=== PATIENT | female | born 1990 | race Two or more races ===

== ENCOUNTER 2019-01-08 09:09 | Emergency (ER) | payer OTHER ==
[2019-01-08 09:23] VITALS: BP 127/83
[2019-01-08] MEDS ORDERED: BUFFERED LIDOCAINE 10 ML SYRINGE SUBQ STA (10:18)
--- NOTE | 2019-01-08 10:19 | ED Physician Documentation ---
History of Present Illness - Stated complaint Stated Complaint: FEMALE / INFLAMED LUMP - Chief complaint Chief Complaint: Wound - Additonal information Additional information: This is a 28-year-old female who is currently ~39 weeks who presents with an inflamed lump near her buttocks. Patient states this began several days ago, she has applied some mupirocin cream as well as some warm compresses but she has not noticed any drainage and it is becoming increasingly pain full to sit on. She has had a similar problem in the past and it drained spontaneously with heat. She denies any fever or chills. Review of Systems Constitutional: denies: Fever Skin: reports: Lesions Musculoskeletal: denies: Back pain Immunocompromised: denies: Immunocompromised PD PAST MEDICAL HISTORY - Past Medical History Derm: Other (Past abscess in gluteal region) - Present Medications Home Medications: Ambulatory Orders Medication Instructions Recorded Confirmed Clindamycin HCl [Clindamycin 300MG 300 mg PO Q6H #28 capsule 01/08/19 CAP] - Allergies Allergies/Adverse Reactions: Allergies Allergy/AdvReac Type Severity Reaction Status Date / Time No Known Drug Allergies Allergy Verified 01/08/19 09:22 - Living Situation Living Situation: reports: With family Living Arrangement: reports: At home - Social History Does the pt smoke?: No Does the pt have substance abuse?: No - Family History Family history: reports: Non contributory PD ED PE NORMAL - Vitals Vital signs reviewed: Yes - General General: Alert and oriented X 3, No acute distress - HEENT HEENT: PERRL - Neck Neck: Supple, no meningeal sign - Cardiac Cardiac: RRR - Respiratory Respiratory: Clear bilaterally - Abdomen Abdomen: Soft, Other (Gravid, non-tender) - Female Female : Marketing Project Coordinator present (JENNY Gregorio present. There is a fluctuant and tender 4cm diameter mass inferior to the vulva and on the right gluteus. No tracking to the rectum. This is seperate from the vulva and not in the location of a bartholin's cyst) - Derm Derm: Warm and dry - Extremities Extremities: No deformity - Neuro Neuro: Alert and oriented X 3 - Psych Psych: Normal mood, Normal affect Results - Vitals Vitals: Vital Signs - 24 hr 01/08/19 09:21 Temperature 36.8 C Heart Rate 76 Respiratory 18 Rate Blood Pressure 127/83 H O2 Saturation 99 Oxygen O2 Source Room air Procedures - Abscess I&D (location) Right gluteus Preparation: Confirmed with ultrasound, Lidocaine 1% Incision: Incised with scalpel, Purulent drainage, Loculations broken Other: Pt tolerated well, Dressing applied, Antibiotic prescribed PD MEDICAL DECISION MAKING - ED course Complexity details: considered differential (Abscess, cellulitis, infected cyst) ED course: Patient presents with a fluctuance mass on her right gluteus, with US there is a confirmed fluid collection. This appears to be a simple abscess and is not in the location for bartholin's gland abscess or sd-rectal fistula. After discussion of the risks and benefits and obtaining verbal consent this was drained as noted above with copious return of purulent fluid. Given the size of the abscess and the surrounding tissue inflammation, we started clindamycin with a discussion of it's apparent safety in I also discussed the risk of recurrence, wound care and the need for follow up. She has follow up with her OB within 4 days. With any fever, increasing pain, or other concerning symptoms she will return to the ED. Departure - Departure Disposition: Home, Self Care Clinical Impression: Abscess Condition: Good Instructions: ED Abscess IandD Follow-Up: Your,OB [Other] - Within 1 week (For recheck) Prescriptions: Clindamycin HCl [Clindamycin 300MG CAP] 300 mg PO Q6H #28 capsule Comments: You were seen today for an abscess/collection of pus which has been drained. Please take the antibiotic as prescribed and follow-up with your OB provider as scheduled next Friday. If you are developing increasing pain, redness, or fever, return to the emergency department. You may take sitz baths, and apply warm compresses to the area, it will likely continue to have some oozing of blood over the next 48 hours. Keep the area covered with clean bandage or pad. Discharge Date/Time: 01/08/19 11:21
[2019-01-08] MEDS ORDERED: CLINDAMYCIN 150 MG CAPSULE PO STA (11:06)
== END 2019-01-08 11:21 | disposition home or self-care (01) ==
LOC: ED 09:09
DX: O99.713 Diseases of the skin and subcutaneous tissue complicating pregnancy, third trimester (principal); L02.31 Cutaneous abscess of buttock; Z3A.39 39 weeks gestation of pregnancy
CPT/HCPCS: 10060; 99282; 99283; A9270

== ENCOUNTER 2020-03-13 19:18 | Emergency (ER) | payer OTHER ==
[2020-03-13] MEDS ORDERED: PENICILLIN VK 250 MG TABLET PO STA (20:35)
[2020-03-13] MEDS ORDERED: IBUPROFEN 800 MG TABLET PO STA (20:36)
--- NOTE | 2020-03-13 20:37 | ED Physician Documentation ---
PD HPI HEENT - Stated complaint Stated Complaint: LT SIDE FACE PX - Chief complaint Chief Complaint: Heent - History obtained from History obtained from: Patient - History of Present Illness Timing - onset: How many days ago (3) Timing - duration: Days (3) Timing - details: Gradual onset Pain level max: 7 Pain level now: 4 Location: Tooth (L upper) Improves: Nothing Worsens: Other (eating, drinking, palpation) - Additional information Additional information: Patient with left upper tooth pain for 3 days Review of Systems Constitutional: denies: Fever, Chills GI: denies: Vomiting : denies: Now EGA Skin: denies: Rash PD PAST MEDICAL HISTORY - Past Medical History Past Medical History: No Derm: Other (Past abscess in gluteal region) - Past Surgical History Past Surgical History: No - Present Medications Home Medications: Ambulatory Orders Medication Instructions Recorded Confirmed Ibuprofen [Motrin] 800 mg PO Q8H PRN #30 tablet 03/13/20 Norethindrone [Jencycla] 1 tab PO DAILY 03/13/20 03/13/20 Penicillin V Potassium 500 mg PO Q6HR #40 tablet 03/13/20 - Allergies Allergies/Adverse Reactions: Allergies Allergy/AdvReac Type Severity Reaction Status Date / Time No Known Drug Allergies Allergy Verified 03/13/20 19:25 - Social History Does the pt smoke?: No Smoking Status: Never smoker Does the pt drink ETOH?: No Does the pt have substance abuse?: No - Immunizations Immunizations are current?: Yes - POLST Patient has POLST: No PD ED PE NORMAL - Vitals Vital signs reviewed: Yes - General General: Alert and oriented X 3, No acute distress - HEENT HEENT: Moist mucous membranes - Neck Neck: Supple, no meningeal sign - Derm Derm: Warm and dry - Neuro Neuro: Alert and oriented X 3 - Psych Psych: Normal mood, Normal affect PD ED PE EXPANDED - HEENT HEENT Visual: 1 - tenderness (Tender to percussion. No swelling. No gingival abscess) Results - Vitals Vitals: Vital Signs - 24 hr 03/13/20 03/13/20 19:25 20:52 Temperature 36.5 C 36.4 C L Heart Rate 65 59 L Respiratory 16 17 Rate Blood Pressure 119/75 125/78 O2 Saturation 98 100 Oxygen O2 Source Room air PD MEDICAL DECISION MAKING - ED course Complexity details: considered differential, d/w patient ED course: Tenderness over tooth 10. We will place on antibiotics and pain medication. We will have her follow-up with her dentist tomorrow. No drainable abscess. Patient counseled regarding signs and symptoms for which I believe and urgent re-evaluation would be necessary. Patient with good understanding of and agreem ent to plan and is comfortable going home at this time This document was made in part using voice recognition software. While efforts are made to proofread this document, sound alike and grammatical errors may occur. Departure - Departure Disposition: 01 Home, Self Care Clinical Impression: Pain due to dental caries Condition: Good Instructions: ED Tooth Pain Follow-Up: your,dentist tomorrow [Other] Prescriptions: Penicillin V Potassium 500 mg PO Q6HR #40 tablet Ibuprofen [Motrin] 800 mg PO Q8H PRN #30 tablet PRN Reason: PAIN &/OR FEVER Comments: Take all antibiotics until gone. Follow-up with your dentist tomorrow. Return if you worsen. Discharge Date/Time: 03/13/20 20:52
[2020-03-13 20:53] VITALS: BP 125/78
== END 2020-03-13 20:52 | disposition home or self-care (01) ==
LOC: ED 19:18
DX: K02.9 Dental caries, unspecified (principal); K08.89 Other specified disorders of teeth and supporting structures
CPT/HCPCS: 99282; 99284; A9270

== ENCOUNTER 2021-04-15 13:09 | Emergency (ER) | payer OTHER ==
[2021-04-15 13:25] VITALS: BP 135/88
--- NOTE | 2021-04-15 14:28 | ED Physician Documentation ---
History of Present Illness - Stated complaint Stated Complaint: R SHOULDER PX - Chief complaint Chief Complaint: Wound - History obtained from History obtained from: Patient - History of Present Illness Pain level max: 4 Pain level now: 4 - Additonal information Additional information: 30-year-old female who presents to the emergency department complaining of swelling to the posterior right shoulder for the past few weeks, increased in size today, redness. Increased in pain. Has an appoint with her PCP on . Worse with palpation, nothing makes it better. Has not had similar symptoms previously. Is not , breast-feeding or trying to become . No allergies to medication. No fevers. No chills. Review of Systems Constitutional: denies: Fever, Chills GI: denies: Vomiting, Diarrhea Skin: denies: Rash Musculoskeletal: denies: Neck pain, Back pain Neurologic: denies: Headache PD PAST MEDICAL HISTORY - Past Medical History Derm: Other (Past abscess in gluteal region) - Past Surgical History Past Surgical History: No - Present Medications Home Medications: Ambulatory Orders Medication Instructions Recorded Confirmed Ibuprofen [Motrin] 800 mg PO Q8H PRN #30 tablet 03/13/20 Norethindrone [Jencycla] 1 tab PO DAILY 03/13/20 03/13/20 Penicillin V Potassium 500 mg PO Q6HR #40 tablet 03/13/20 HYDROcod/ACETAM 5/325 [[place] 5/325] 1 - 2 ea PO Q6H PRN #10 tablet 04/15/21 Sulfamethox/Trimeth 800/160 1 each PO BID #14 tablet 04/15/21 [Bactrim Ds 800/160] cephALEXin [Keflex] 500 mg PO Q6H #28 cap 04/15/21 - Allergies Allergies/Adverse Reactions: Allergies Allergy/AdvReac Type Severity Reaction Status Date / Time No Known Drug Allergies Allergy Verified 04/15/21 13:25 - Social History Does the pt smoke?: No Smoking Status: Never smoker Does the pt drink ETOH?: No Does the pt have substance abuse?: No - Immunizations Immunizations are current?: Yes - POLST Patient has POLST: No PD ED PE NORMAL - Vitals Vital signs reviewed: Yes - General General: Alert and oriented X 3, No acute distress - HEENT HEENT: Moist mucous membranes - Neck Neck: Supple, no meningeal sign - Cardiac Cardiac: RRR - Respiratory Respiratory: No respiratory distress, Clear bilaterally - Derm Derm: Warm and dry - Extremities Extremities: Other (1.5cm round indurated, fluctuant area to the posterior R shoulder. erythematous.) - Neuro Neuro: Alert and oriented X 3 Results - Vitals Vitals: Vital Signs - 24 hr 04/15/21 13:22 Temperature 36.3 C L Heart Rate 72 Respiratory 16 Rate Blood Pressure 135/88 H O2 Saturation 100 Oxygen O2 Source Room air Procedures - Abscess I&D (location) R shoulder Preparation: Confirmed with ultrasound, Lidocaine 2%, With epi Incision: Incised with scalpel, Purulent drainage, Packed, Culture obtained Other: Pt tolerated well, Dressing applied, Antibiotic prescribed PD MEDICAL DECISION MAKING - ED course Complexity details: considered differential, d/w patient ED course: 30-year-old female with what appears to be an infected sebaceous cyst. A large amount of thick material was removed from the cyst. There was also a small amount of pus. We will place on antibiotics and have her follow-up with her doctor. She will likely need further care with dermatology to remove the cyst. Patient counseled regarding signs and symptoms for which I believe and urgent re-evaluation would be necessary. Patient with good understanding of and ag reement to plan and is comfortable going home at this time This document was made in part using voice recognition software. While efforts are made to proofread this document, sound alike and grammatical errors may occur. Departure - Departure Disposition: 01 Home, Self Care Clinical Impression: Sebaceous cyst Condition: Good Instructions: ED Abscess IandD Follow-Up: Provider,Other [Primary Care Provider] - [facility] [Provider Group] Prescriptions: Sulfamethox/Trimeth 800/160 [Bactrim Ds 800/160] 1 each PO BID #14 tablet cephALEXin [Keflex] 500 mg PO Q6H #28 cap HYDROcod/ACETAM 5/325 [[place] 5/325] 1 - 2 ea PO Q6H PRN #10 tablet PRN Reason: Pain Comments: Your prescriptions were sent to [facility] in [place]. Take all antibiotics until gone. Follow-up with your doctor and/or dermatology to remove the sac that formed around the cyst. Return if you worsen. I am prescribing a short course of narcotic pain medication for you. These are potentially dangerous and addictive medications that should be used carefully. These medications may constipate you. Take an ijor-uqk-zfwtwre stool softener (docusate) twice daily with plenty of water while taking these medications. If you go 24 hours without a bowel movement, take bqjs-axj-[id number] miralax, per package instructions. Do not drink or drive while taking these medications. If you received narcotic or sedating medications while in the emergency department, do not drive for 24 hours. Store this medication in a safe, secure place and out of reach of children. It is a violation of federal law to give or sell this medication to another person or to use in a manner other than prescribed. The ED will not refill narcotic prescriptions, including prescriptions lost or stolen. To dispose of unwanted medications: 1. [facility] at [address] in [place] has a medication drop box. They accept prescription medications (in pill form) Friday through Friday 9:00 a.m. to 5:00 p.m. 2. The [facility] [employer] accepts prescription medications (in pill form only) for disposal year round. Call for more information. 3. Contact the [facility] for the next [facility] sponsored prescription drug collection event. , [phone], or [phone]; Discharge Date/Time: 04/15/21 15:23
[2021-04-15] MEDS: LIDOCAINE 2%-EPI 1:100000 20 ML MDV SUBQ STA (14:38)
== END 2021-04-15 15:23 | disposition home or self-care (01) ==
LOC: ED 13:09
DX: L72.3 Sebaceous cyst (principal); L02.413 Cutaneous abscess of right upper limb
CPT/HCPCS: 10061; 87070; 87077; 87181; 87205; 99282

== ENCOUNTER 2022-04-26 21:38 | Emergency (ER) | payer OTHER ==
--- NOTE | 2022-04-26 21:48 | ED Physician Documentation ---
PD HPI ABD PAIN - Stated complaint Stated Complaint: ABD PX - Chief complaint Chief Complaint: Abd Pain - History obtained from History obtained from: Patient - History of Present Illness Timing - onset: How many days ago (2) Timing - duration: Minutes (the pain lasts just 1/2-1 minute or so at a time and then improves. 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 No: Fever, Vomiting, Diarrhea Similar symptoms before: Has not had sx before Recently seen: Not recently seen Review of Systems Constitutional: denies: Fever, Chills, Myalgias Nose: denies: Rhinorrhea / runny nose, Congestion Throat: denies: Sore throat Cardiac: denies: Chest pain / pressure, Calf pain Respiratory: denies: Dyspnea, Cough GI: reports: Abdominal Pain, Nausea. denies: Abdominal Swelling, Vomiting, Constipation (last BM was yesterday), Diarrhea : denies: Dysuria, Discharge Neurologic: denies: Generalized weakness, Near syncope PD PAST MEDICAL HISTORY - Past Medical History Past Medical History: No Derm: Other (Past abscess in gluteal region) - Past Surgical History Past Surgical History: No - Present Medications Home Medications: Ambulatory Orders Medication Instructions Recorded Confirmed Norethindrone [Jencycla] 1 tab PO DAILY 03/13/20 03/13/20 Famotidine [Pepcid] 20 mg PO BID #14 tablet 04/27/22 Lidocaine Viscous 2% [Xylocaine 5 ml PO Q4H PRN #100 ml 04/27/22 Viscous 2%] - Allergies Allergies/Adverse Reactions: Allergies Allergy/AdvReac Type Severity Reaction Status Date / Time No Known Drug Allergies Allergy Verified 04/15/21 13:25 - Social History Does the pt smoke?: No Smoking Status: Never smoker Does the pt drink ETOH?: No Does the pt have substance abuse?: No - Immunizations Immunizations are current?: Yes - POLST Patient has POLST: No PD ED PE NORMAL - Vitals Vital signs reviewed: Yes - General General: Alert and oriented X 3, No acute distress, Well developed/nourished - Cardiac Cardiac: RRR, No murmur - Respiratory Respiratory: No respiratory distress, Clear bilaterally - Abdomen Abdomen: Normal bowel sounds, Soft, Non tender (she states the pain is not present during my initial H&P. ), Non distended - Female Female : Deferred - Rectal Rectal: Deferred - Back Back: No CVA TTP - Derm Derm: Normal color, Warm and dry - Neuro Neuro: Alert and oriented X 3, No motor deficit, Normal speech Results - Vitals Vitals: Vital Signs - 24 hr 04/26/22 04/26/22 04/27/22 21:41 22:00 00:00 Temperature 36.3 C L Heart Rate 57 L 60 62 Respiratory 15 17 14 Rate Blood Pressure 133/83 H 124/84 H 141/82 H O2 Saturation 99 99 100 04/27/22 01:12 Temperature Heart Rate 49 L Respiratory 14 Rate Blood Pressure 116/70 O2 Saturation 100 Oxygen O2 Source Room air - Labs Labs: Laboratory Tests 04/26/22 04/26/22 22:22 22:22 WBC 4.7 L RBC 4.16 L Hgb 12.7 Hct 39.0 MCV 93.8 MCH 30.5 MCHC 32.6 RDW 13.2 Plt Count 191 MPV 12.3 H Neut # (Auto) 2.0 Lymph # (Auto) 2.1 [place] # (Auto) 0.6 Eos # (Auto) 0.1 Baso # (Auto) 0.0 Absolute Nucleated RBC 0.00 Nucleated RBC % 0.0 Sodium 133 L Potassium 3.4 L Chloride 102 Carbon Dioxide 19 L Anion Gap 12.0 BUN 15 Creatinine 0.5 Estimated GFR (MDRD) 143 Glucose 99 Calcium 8.9 Total Bilirubin 0.7 AST 32 ALT 12 Alkaline Phosphatase 74 Total Protein 7.1 Albumin 3.8 Globulin 3.3 Albumin/Globulin Ratio 1.2 Lipase 43 - Rads (name of study) upper abd U/S Radiology: Prelim report reviewed (normal study), See rad report PD Medical Decision Making - ED course Complexity details: reviewed results (normal lipase and LFTs. Normal U/S. Does not seem like process with those organs. Presume gastric/upper small intestinal process. an treat with acid reduction/antacids. ), re-evaluated patient (she did have the discomfort return while her in ER and has some residual of it on recheck. Given GI cocktail and says it is improved. ), considered differential (intermittent pains upper abd since yestereday. No obvious pattern with food/eating, breathing, movement. ), d/w patient Departure - Departure Disposition: 01 Home, Self Care Clinical Impression: Acute upper abdominal pain Condition: Stable Record reviewed to determine appropriate education?: Yes Instructions: ED Abdominal Pain Female Non-Specific Abdominal Pain Prescriptions: Famotidine [Pepcid] 20 mg PO BID #14 tablet Lidocaine Viscous 2% [Xylocaine Viscous 2%] 5 ml PO Q4H PRN #100 ml PRN Reason: Pain Comments: Your blood tests are normal without any signs of significant infection based on the white cell count and no signs of pancreatic or liver inflammation. The ultrasound is showing normal anatomy of the gallbladder without any stones or swelling or inflammation. Also normal pancreas and kidney. The liver is essentially normal with just mild comment of "fatty liver" which means just a little larger size essentially. I presume your pain therefore is either the stomach itself or the upper part of the intestine. This may relate to a viral illness or a food intolerance or just a irritation of the stomach (gastritis). At this point I would suggest treating it with acid reducing medicine such as famotidine/Pepcid twice daily for the next week. To that add antacid such as Maalox or Mylanta etc. periodically for the discomfort. You can add the lidocaine to that if you need for better relief of discomfort. The Pepcid/famotidine is available [id number] or I wrote a prescription NSAID if you prefer. Antacids are egnw-vmq-rvwuzay. The lidocaine is prescription if you wanted to add that. Tylenol every 4-6 hours if needed for pain. At this point I would avoid anti-inflammatory such as ibuprofen or naproxen, any alcohol or large amount of caffeine or notably spicy foods for the next week. Recheck if recurring pains over the next few days and return if worsening pain or associated persistent vomiting, fever, generalized pain, bloody stools or other concerns. Discharge Date/Time: 04/27/22 01:21
[2022-04-26] MEDS ORDERED: FAMOTIDINE 20 MG TABLET PO STA (22:13)
[2022-04-26 22:27] LABS: BASOPHILS % (AUTO) 0.4 %; EOSINOPHILS # (AUTO) 0.1 10^3/uL (0.0-0.7); EOSINOPHILS % (AUTO) 1.5 %; HGB - HEMOGLOBIN 12.7 g/dL (12.0-16.0); LYMPHOCYTES # (AUTO) 2.1 10^3/uL (1.5-3.5); LYMPHOCYTES % (AUTO) 43.7 %; MEAN CORPUSCULAR HEMOGLOBIN 30.5 pg (27.0-31.0); MEAN CORPUSCULAR HGB CONC 32.6 g/dL (32.0-36.0); MEAN CORPUSCULAR VOLUME 93.8 fL (81.0-99.0); MEAN PLATELET VOLUME 12.3 fL (7.9-10.8); MONOCYTES # (AUTO) 0.6 10^3/uL (0.0-1.0); MONOCYTES % (AUTO) 12.1 %; NEUTROPHILS % (AUTO) 42.3 %; PLT - PLATELET COUNT 191 10^3/uL (130-450); RED BLOOD COUNT 4.16 10^6/uL (4.20-5.40); RED CELL DISTRIBUTION WIDTH 13.2 % (12.0-15.0); WHITE BLOOD COUNT 4.7 x10^3/uL (4.8-10.8)
[2022-04-26 22:39] LABS: ALBUMIN 3.8 g/dL (3.2-5.5); ALBUMIN/GLOBULIN RATIO 1.2 (1.0-2.2); BILIRUBIN,TOTAL 0.7 mg/dL (0.2-1.0); CALCIUM 8.9 mg/dL (8.5-10.3); CREATININE 0.5 mg/dL (0.4-1.0); POTASSIUM 3.4 mmol/L (3.5-5.0); TOTAL PROTEIN 7.1 g/dL (6.7-8.2)
--- NOTE | 2022-04-27 00:42 | Ultrasound Report ---
PROCEDURE: Abdomen Limited INDICATIONS: intermittent upper abd pain for 2 days TECHNIQUE: Real-time focused scanning was performed of the abdomen, with image documentation. COMPARISON: None. FINDINGS: The liver is normal in size. There is slightly increased cortical echogenicity with coarse sonographi c echotexture suggestive of fatty infiltration. No discrete hepatic mass identified within the visual ized liver. The bladder demonstrates no stones, wall thickening, or pericholecystic fluid. No intrahepatic or extrahepatic biliary ductal dilatation. The visualized common bile duct measures u p to 0.4 cm. Visualized pancreas appears unremarkable sonographically. Right kidney measures 10.6 cm. No hydronephrosis. IMPRESSION: 1. No evidence of cholelithiasis or cholecystitis. Reviewed by: Casimiro Silverman MD on 04/27/2022 12:40 AM [facility] Approved by: Casimiro Silverman MD on 04/27/2022 12:40 AM [facility] Station ID: [id number]
[2022-04-27] MEDS ORDERED: MAG HYDROX/AL HYDROX/SIMETH 30 ML UDC PO STA (00:56)
[2022-04-27] MEDS ORDERED: LIDOCAINE VISCOUS 2% 15 ML ORAL SYRINGE MM STA (00:56)
[2022-04-27] MEDS ORDERED: ACETAMINOPHEN 325 MG TABLET PO STA (00:57)
[2022-04-27 01:13] VITALS: BP 116/70
== END 2022-04-27 01:21 | disposition home or self-care (01) ==
LOC: ED 21:38
DX: R10.13 Epigastric pain (principal)
CPT/HCPCS: 36415; 76705; 80053; 83690; 85025; 99283; 99284; A9270